=== PATIENT | male | born 1990 | race Caucasian/White ===

== ENCOUNTER 2023-01-09 21:38 | Emergency (ER) | payer MEDICAID ==
[~2023-01-09] VITALS: Ht 188 cm; Wt 79.5 kg
[2023-01-09 21:50] LABS: COVID AG,FIA SOURCE NASAL SWAB
[2023-01-09] MEDS ORDERED: ALBUTEROL SULFATE 2.5 MG/0.5 ML NEB SOLUTION NEB ONE (22:30)
[2023-01-09] MEDS ORDERED: LORazepam 2 MG TABLET PO ONE (22:30)
[2023-01-09] MEDS ORDERED: PredniSONE 20 MG TABLET PO ONE (22:30)
[2023-01-09] MEDS ORDERED: IPRATROPIUM BROMIDE 0.5 MG/2.5 ML NEB SOLUTION NEB ONE (22:30)
[2023-01-09 22:56] LABS: BASOPHILS % (AUTO) 0.7 % (0.0-2.0); EOSINOPHILS % (AUTO) 8.2 % (1.0-6.0); HEMATOCRIT 44.6 % (41-53); HEMOGLOBIN 14.5 g/dL (13.5-17.5); LYMPHOCYTES % (AUTO) 24.5 % (22.0-44.0); MEAN CORPUSCULAR HEMOGLOBIN 29.2 pg (26.0-34.0); MEAN CORPUSCULAR HGB CONC 32.5 G/dL (31.0-37.0); MEAN CORPUSCULAR VOLUME 90 fL (80-100); MONOCYTES # (AUTO) 1.1 K/uL (0.1-1.0); MONOCYTES % (AUTO) 9.2 % (2.0-9.0); NEUTROPHILS # (AUTO) 6.9 K/uL (1.8-7.7); NEUTROPHILS % (AUTO) 57.4 % (40.0-70.0); PLATELET COUNT (AUTO) 335 K/uL (150-450); RED BLOOD CELL COUNT(AUTO) 4.97 MIL/uL (4.50-5.90); RED CELL DISTRIBUTION WIDTH 13.2 % (11.5-14.5)
[2023-01-09 23:06] LABS: ANION GAP 10 mmol/L (8-16); CALCIUM, TOTAL 9.3 mg/dL (8.8-10.5); CARBON DIOXIDE 28 mmol/L (22-29); CHLORIDE 103 mmol/L (98-107); CREATININE 1.18 mg/dL (0.60-1.30); GLOMERULAR FILTR. RATE CALC > 60 mL/min (>60); GLUCOSE,RANDOM 82 mg/dL (70-110); POTASSIUM 4.1 mmol/L (3.5-5.1); SODIUM SERUM 141 mmol/L (136-145); UREA NITROGEN, BLOOD 25 mg/dL (7-18)
[2023-01-10 00:13] LABS: CREATINE KINASE, TOTAL ONLY 535 U/L (39-308)
[2023-01-10] MEDS ORDERED: NALOXONE HCL 1 MG/ML 2 ML SYRINGE IM ONE ×2 (01:45→02:15)
[2023-01-10 05:00] VITALS: BP 114/74
[2023-01-10] MEDS ORDERED: NALO4SPR NASAL (05:00)
[2023-01-10] MEDS ORDERED: ALBU8HFA IH (05:00)
== END 2023-01-10 05:45 | disposition home or self-care (01) ==
LOC: EMS 21:40
DX: J45.901 Unspecified asthma with (acute) exacerbation (principal); F11.90 Opioid use, unspecified, uncomplicated; R41.82 Altered mental status, unspecified; F15.10 Other stimulant abuse, uncomplicated; Z20.822 Contact with and (suspected) exposure to COVID-19
CPT/HCPCS: 99285; 87426; 80048; 82550; 85025; 36415; 94640; 93005; 96372; J7512; J2310